=== PATIENT | male | born 1960 | race Caucasian/White ===

== ENCOUNTER 2018-03-15 12:35 | Emergency (ER) | payer SELFPAY ==
[~2018-03-15] VITALS: Ht 180.3 cm; Wt 83.9 kg
--- OUTSIDE RECORDS SUMMARY | 2018-03-15 12:40 | XMS REPORT | Referral Summary ---
Author Author [facility] Organization [facility] Address Unknown Phone Unavailable Care Team Providers Care Saw Setter Name Role Phone Rehana Manrique PCP Encounter [facility] [id number] Date(s): 12/02/15 - 12/02/15 [facility] [address] [place] [address] [phone] Discharge Disposition: 01-Home or Self Care Attending Physician: Cedric Sanford MD Admitting Physician: Cedric Sanford MD Vital Signs Most recent to 1 oldest [Reference Range]: Temperature Skin 35.2 degC [36-37 degC] *LOW* (12/02/15 12:10 PM) Temperature Temporal 36.8 degC Artery [36.3-37.8 (12/02/15 6:55 AM) degC] Peripheral Pulse 46 bpm Rate [60-100 bpm] *LOW* (12/02/15 12:55 PM) Heart Rate Monitored 58 bpm [60-100 bpm] *LOW* (12/02/15 12:00 PM) Respiratory Rate 16 br/min [14-20 br/min] (12/02/15 12:55 PM) Blood Pressure 112/77 mmHg [90-140/60-90 mmHg] (12/02/15 12:55 PM) Mean Arterial 87 mmHg Pressure, Cuff (12/02/15 8:40 AM) SpO2 92 % (12/02/15 12:55 PM) Problem List Condition Effective Dates Status Health Status Informant Acute Active pain(Confirmed) At risk for activity Active intolerance(Confirme d)1 At risk for Active injury(Confirmed)2 At risk of pressure Active sore(Confirmed) Impaired skin Active integrity(Confirmed) 3 Impaired spontaneous Active ventilation(Confirme d)4 Knowledge Active deficit(Confirmed)5 1Problem added automatically by system based on initiation of At Risk for Activity Intolerance Plan of Care 2Problem added automatically by system based on initiation of Risk for Injury Plan of Care 3Problem added automatically by system based on initiation of Impaired Skin Integrity Plan of Care 4Problem added automatically by system based on initiation of Impaired Spontaneous Ventilation Plan of Care 5Problem added automatically by system based on initiation of Knowledge Deficit Plan of Care Allergies, Adverse Reactions, Alerts No Known Allergies Medications Excedrin 2 tabs, Oral, q6hr, Pain Moderate (4-6), 0 Refill(s) Start Date: 12/02/15 Status: Ordered [place] 5 mg-325 mg oral tablet 1-2 tabs, Oral, q6hr, Pain Moderate (4-6), # 58 tabs, 0 Refill(s), other reason (Rx) Start Date: 12/02/15 Stop Date: 12/25/15 Status: Ordered Results Hematology Most recent to 1 oldest [Reference Range]: WBC [4.8-10.8 7.4 10*3/uL 10*3/uL] (12/02/15 7:09 AM) RBC [4.60-6.20] 4.60 (12/02/15 7:09 AM) Hgb [14.0-18.0 15.1 gm/dL gm/dL] (12/02/15 7:09 AM) Hct [42.0-52.0 %] 43.8 % (12/02/15 7:09 AM) MCV [82.0-99.0 fL] 95.2 fL (12/02/15 7:09 AM) MCH [27.0-32.0 pg] 32.8 pg *HI* (12/02/15 7:09 AM) MCHC [32.0-36.0 34.5 gm/dL gm/dL] (12/02/15 7:09 AM) RDW [11.5-14.5 %] 12.9 % (12/02/15 7:09 AM) Platelet [150-400 215 10*3/uL 10*3/uL] (12/02/15 7:09 AM) MPV [9.4-12.3 fL] 9.4 fL (12/02/15 7:09 AM) Immature 0.4 % Granulocytes (12/02/15 7:09 AM) [0.0-1.0 %] Neutrophils [51-75 53 % %] (12/02/15 7:09 AM) Lymphocytes [20-46 31 % %] (12/02/15 7:09 AM) Monocytes [4-11 %] 10 % (12/02/15 7:09 AM) Eosinophils [0-4 %] 5 % *HI* (12/02/15 7:09 AM) Basophils [0-2 %] 0 % (12/02/15 7:09 AM) Neutro Absolute 3.91 10*3 [1.90-7.00 10*3] (12/02/15 7:09 AM) Lymph Absolute 2.31 10*3 [0.80-3.30 10*3] (12/02/15 7:09 AM) [place] Absolute 0.73 10*3 [0.30-1.00 10*3] (12/02/15 7:09 AM) Eos Absolute 0.36 10*3 [0.00-0.50 10*3] (12/02/15 7:09 AM) Baso Absolute 0.02 10*3 [0.00-0.20 10*3] (12/02/15 7:09 AM) Nucleated RBC 0.0 /100 WBC Automated [0 /100 (12/02/15:09 AM) WBC] Chemistry Most recent to 1 oldest [Reference Range]: Sodium Lvl [136-144 139 mEq/L mEq/L] (12/02/15 7:09 AM) Potassium Lvl 3.9 mEq/L [3.6-5.1 mEq/L] (12/02/15 7:09 AM) Chloride [99-109 106 mEq/L mEq/L] (12/02/15 7:09 AM) CO2 [22-32 mEq/L] 28 mEq/L (12/02/15 7:09 AM) AGAP [3-20] 5 (12/02/15 7:09 AM) BUN [4-20 mg/dL] 10 mg/dL (12/02/15 7:09 AM) Glucose Lvl [70-100 103 mg/dL mg/dL] *HI* (12/02/15 7:09 AM) Creatinine Lvl 0.93 mg/dL [0.64-1.27 mg/dL] (12/02/15 7:09 AM) eGFR [>60] >60 1 (12/02/15 7:09 AM) Calcium Lvl 9.2 mg/dL [8.6-10.0 mg/dL] (12/02/15 7:09 AM) Blood Glucose, 94 mg/dL Capillary [70-100 (12/02/15 6:54 AM) mg/dL] 1Result Comment: Multiply eGFR results by 1.21 for race. Immunizations Vaccine Date Refusal Reason tetanus-diphth toxoids (Td) adult/adol 10/26/13 Procedures Procedure Date Related Diagnosis Body Site Removal Hardware Extremity Lower (Left)1 12/02/15 Removal Hardware Extremity Upper (Right)2 12/02/15 Removal Hardware Extremity Lower (Left, 12/29/13 Foot)3 Arthrodesis Triple (Left)4 11/03/13 Reconstruction Maxillary Mandibular (Left)5 11/03/13 Debridement Irrigation Upper Extremity 10/27/13 (Right)6 Open Reduction Internal Fixation Femur (Left, 10/27/13 Distal)7 Open Reduction Internal Fixation Wrist D 10/27/13 (Right)8 1auto-populated from documented surgical case 2auto-populated from documented surgical case 3auto-populated from documented surgical case 4auto-populated from documented surgical case 5auto-populated from documented surgical case 6auto-populated from documented surgical case 7auto-populated from documented surgical case 8auto-populated from documented surgical case Social History Social History Type Response Smoking Status Never smoker Assessment and Plan No data available for this section
--- OUTSIDE RECORDS SUMMARY | 2018-03-15 12:41 | XMS REPORT | Referral Summary ---
Author Author [facility] Organization [facility] Address Unknown Phone Unavailable Care Team Providers Care Batter Mixer Helper Name Role Phone Cecelia Corona PCP Encounter [facility] Date(s): 02/23/15 - 02/23/15 [facility] [address] [place] [address] [phone] Discharge Diagnosis: Cholelithiasis Discharge Disposition: 01-Home or Self Care Attending Physician: Neptali Sosa MD Admitting Physician: Neptali Sosa MD Vital Signs Most recent to 1 oldest [Reference Range]: Temperature Oral 36.8 degC [35.8-37.3 degC] (02/23/15 11:25 AM) Apical Heart Rate 53 bpm [60-100 bpm] *LOW* (02/23/15 11:25 AM) Respiratory Rate 18 br/min [14-20 br/min] (02/23/15 11:25 AM) Blood Pressure 136/91 mmHg [90-140/60-90 mmHg] (02/23/15 11:25 AM) SpO2 97 % (02/23/15 11:25 AM) Problem List Condition Effective Dates Status Health [...] Adverse Reactions, Alerts No Known Allergies Medications cyclobenzaprine 10 mg, Oral, BID, as needed for muscle spasm, 0 Refill(s) Start Date: 12/16/13 Status: Ordered docusate 10 mg/mL oral liquid 10 mL, Oral, BID, 0 Refill(s) Start Date: 11/07/13 Status: Ordered Dulcolax Laxative 5 mg oral delayed release tablet 1 tabs, Oral, Daily, Constipation, 0 Refill(s) Start Date: 11/07/13 Status: Ordered Lacri-Lube S.O.P. ophthalmic ointment 1 dutch, Eye-Both, q4hr, Dry Eyes, 0 Refill(s) Start Date: 11/07/13 Status: Ordered Lyrica 50 mg oral capsule 1 caps, Oral, BID, 0 Refill(s) Start Date: 11/07/13 Status: Ordered metoprolol tartrate 25 mg oral tablet 1 tabs, Oral, Daily, 0 Refill(s) Start Date: 12/29/13 Status: Ordered metoprolol tartrate 25 mg oral tablet 0.5 tabs, Oral, BID, 0 Refill(s) Start Date: 11/07/13 Status: Ordered Milk of Magnesia 2,400 mg, Oral, Daily, Constipation, 0 Refill(s) Start Date: 11/07/13 Status: Ordered Naprosyn 500 mg oral tablet 1 tabs, Oral, q8hr, Pain, # 15 tabs, 0 Refill(s) Start Date: 05/11/14 Status: Ordered Tums 500 mg oral tablet, chewable 2 tabs, Oral, Daily, indigestion, 0 Refill(s) Start Date: 11/07/13 Status: Ordered valproic acid 250 mg oral capsule 1 caps, Oral, TID, # 15 caps, 0 Refill(s), Pharmacy: [facility], 1 caps Oral TID Start Date: 12/18/13 Status: Ordered Results No data available for this section Immunizations Vaccine Date Refusal Reason tetanus-diphth toxoids (Td) adult/adol 10/26/13 Procedures Procedure Date Related Diagnosis Body Site Removal Hardware Extremity Lower (Left, 12/29/13 Foot)1 Arthrodesis Triple (Left)2 11/03/13 Reconstruction Maxillary Mandibular (Left)3 11/03/13 Debridement Irrigation Upper Extremity 10/27/13 (Right)4 Open Reduction Internal Fixation Femur (Left, 10/27/13 Distal)5 Open Reduction Internal Fixation Wrist D 10/27/13 (Right)6 1auto-populated from documented surgical case 2auto-populated from documented surgical case 3auto-populated from documented surgical case 4auto-populated from documented surgical case 5auto-populated from documented surgical case 6auto-populated from documented surgical case Social History Social History Type Response Smoking Status Never smoker Assessment and Plan No data available for this section
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
[2018-03-15 16:28] VITALS: BP 138/99
[2018-03-15] MEDS ORDERED: TETANUS,DIPTH,PERTUSS P/F (BOOSTRIX) 0.5 ML VIAL IM ONE (16:30)
== END 2018-03-15 16:28 | disposition home or self-care (01) ==
LOC: ER 12:37
DX: S00.81XA Abrasion of other part of head, initial encounter (principal); S10.91XA Abrasion of unspecified part of neck, initial encounter; S40.211A Abrasion of right shoulder, initial encounter; I25.2 Old myocardial infarction; R40.2142 Coma scale, eyes open, spontaneous, at arrival to emergency department; R40.2252 Coma scale, best verbal response, oriented, at arrival to emergency department; R40.2362 Coma scale, best motor response, obeys commands, at arrival to emergency department; Z87.820 Personal history of traumatic brain injury; Z23 Encounter for immunization; Y08.89XA Assault by other specified means, initial encounter; Y92.59 Other trade areas as the place of occurrence of the external cause; Y99.0 Civilian activity done for income or pay
CPT/HCPCS: 70450; 72125; 73030; 90471; 90715